=== PATIENT | female | born 1975 ===

== ENCOUNTER 2023-02-19 05:34 | Day surgery (SDC) | payer OTHER ==
[~2023-02-19] VITALS: Ht 160 cm; Wt 66.7 kg
[~2023-02-19 05:34] MED LIST: AZOR 5-20 MG T1 EACH PO; CLONAZEPAM1 MG PO; PRISTIQ ER50 MG PO
== END 2023-02-19 12:00 | disposition home or self-care (01) ==
LOC: CIR.AMB 05:34
PROVIDERS: ATTEND Obstetrics & Gynecology
DX: N93.8 Other specified abnormal uterine and vaginal bleeding (principal); N84.0 Polyp of corpus uteri; D25.9 Leiomyoma of uterus, unspecified; Z88.6 Allergy status to analgesic agent; Z20.822 Contact with and (suspected) exposure to COVID-19